=== PATIENT | male | born 1990 | race Caucasian/White ===

== ENCOUNTER 2018-03-27 20:59 | Emergency (ER) | payer SELFPAY ==
[~2018-03-27] VITALS: Ht 177.8 cm; Wt 95.3 kg
--- NOTE | 2018-03-27 21:48 | ED Headache ---
General Chief Complaint: Head/Cervical Problems Stated Complaint: FALL/HEAD INJ Nursing Triage Note: pt verbalized fall from standing, this morning hit back of head. denies loc. states pt is acting "spacy" states drifts off during converstations. pt A/ O x4. Nursing Sepsis Screen: No Definite Risk Source: patient Exam Limitations: no limitations (USAMA SEVILLA APRN) History of Present Illness Date Seen by Provider: Mar 27, 2018 Time Seen by Provider: 21:46 Initial Comments To ER with reports of head injury. He arrives by private vehicle from home accompanied by his . The head injury occurred today earlier this morning at about 8 AM. He was shoveling mud when he slipped and fell striking the back of his head on concrete. There was no loss of consciousness but he has since been disoriented at times for example turning off the car's headlight's while driving thinking that he was turning them on. She states that he also drifts off during conversation. no nausea no vomiting intermittent headache and mild dizziness. No anticoagulant use. Timing/Duration: other (12 hours) Severity/Quality: moderate Associated Symptoms: confusion, nausea/vomiting (USAMA SEVILLA APRN) Allergies and Home Medications Patient Home Medication List Home Medication List Reviewed: Yes (USAMA SEVILLA APRN) Review of Systems Review of Systems Constitutional: see HPI Eyes: No Symptoms Reported Ears, Nose, Mouth, Throat: no symptoms reported Respiratory: no symptoms reported Cardiovascular: no symptoms reported Genitourinary: no symptoms reported Musculoskeletal: no symptoms reported Skin: no symptoms reported Psychiatric/Neurological: See HPI, Headache; Denies Numbness (USAMA SEVILLA APRN) Past Dtwixby-Xnoipg-Jifznv Hx Patient Social History Recent Foreign Travel: No Contact w/Someone Who Travel: No Recent Infectious Disease Expo: No Physical Abuse: No Sexual Abuse: No Mistreated: No Fear: No (USAMA SEVILLA APRN) Physical Exam Vital Signs Vital Signs - First Documented 03/27/18 21:13 Temp 98.0 Pulse 77 Resp 18 B/P (MAP) 145/103 (117) Pulse Ox 95 O2 Delivery Room Air (CASANDRA CARDOSO MD) Vital Signs Capillary Refill : Less Than 3 Seconds (USAMA SEVILLA APRN) Height, Weight, BMI Height: 5'10.00" Weight: 210lbs. oz. 95.176199bq; BMI Method:Stated General Appearance: WD/WN, no apparent distress HEENT: PERRL/EOMI, normal ENT inspection, TMs normal, pharynx normal, other ( at this time he is alert and oriented with a GCS of 15. There is no scalp hematoma or laceration. There is no palpable depressed skull fracture. There is no soto sign or hemotympanum or raccoon eyes.) Neck: tender lateral Cardiovascular: regular rate, rhythm, no murmur Respiratory: normal breath sounds, no respiratory distress, no accessory muscle use Gastrointestinal: normal bowel sounds, non tender, soft Extremities: normal range of motion, non-tender, normal inspection Psychiatric: alert, oriented x 3 Crainal Nerves: normal hearing, normal speech, PERRL Skin: normal color, warm/dry (USAMA SEVILLA APRN) Progress/Results/Core Measures Results/Orders Vital Signs/I&O 03/27/18 21:13 Temp 98.0 Pulse 77 Resp 18 B/P (MAP) 145/103 (117) Pulse Ox 95 O2 Delivery Room Air (CASANDRA CARDOSO MD) Blood Pressure Mean: 117 Progress Progress Note : Progress Note 2229: CT results noted. I have reevaluated the patient. Still alert and oriented. Did discuss the reactive lymph nodes. He does admit to some upper respiratory complaints recently with runny nose. Instructed to rest over the next few days. Discharged home with return precautions. Patient verbalize understanding instructions and agreement with plan. (CASANDRA CARDOSO MD) Diagnostic Imaging Diagonstic Imaging: CT Plain Films/CT/US/NM/MRI: c-spine, head Comments NAME: LEONARDO SONG [facility] REC#: [id number] PT STATUS: REG ER : 1990 PHYSICIAN: USAMA SEVILLA APRN ADMIT DATE: 03/27/18/ER Draft Date of Exam:03/27/18 CT HEAD/CERVICAL SPINE WO PROCEDURE: CT head and CT cervical spine without contrast. TECHNIQUE: Multiple contiguous axial images were obtained through the brain and cervical spine without the use of intravenous contrast. Sagittal and coronal reformations through the cervical spine were then performed. INDICATION: 28-year-old male injured in fall hit head and neck presents with pain COMPARISON: None. CT HEAD FINDINGS: Midline structures are not displaced. Lateral, third and fourth ventricles are normal in size, shape and anatomic position. There is no evidence of mass, mass effect, hydrocephalus or hemorrhage. Travis-white differentiation is normal. There is no sulcal effacement. There are no abnormal extra-axial fluid collections or hemorrhage. Basilar cisterns appear normal. Sinuses show a mucus retention cyst in the right maxillary sinus. Orbits and mastoid air cells are normal. Bone windows show no calvarial changes. IMPRESSION: Unremarkable nonenhanced CT brain. CT CERVICAL SPINE FINDINGS: Axial images and sagittal and coronal reconstructions the cervical spine show no evidence of new or healing fractures, bony destruction or remodeling. Cervical vertebral bodies appear well aligned, vertebral body heights are well-maintained. Prevertebral soft tissue as well as a predental space and the relationship of the dens to the lateral mass of C1 is normal. Lung apices are clear. Superior mediastinum is grossly normal. The parapharyngeal and paraspinous soft tissues are also grossly normal. There are few cervical lymph nodes probably reactive in nature. IMPRESSION: 1. No evidence of acute fracture or subluxation seen. 2. Probable cervical reactive lymphadenopathy. Dictated on workstation # [id number] Dict: 03/27/184 Trans: 03/27/182221 [facility] [id number] Interpreted by: SULY RG MD Electronically signed by: (CASANDRA CARDOSO MD) Departure Impression Primary Impression: Concussion without loss of consciousness Qualified Codes: S06.0X0A - Concussion without loss of consciousness, initial encounter Additional Impression: Upper respiratory infection Qualified Codes: J06.9 - Acute upper respiratory infection, unspecified Disposition: HOME, SELF-CARE Condition: Improved Departure-Patient Inst. Decision time for Depature: 22:34 (CASANDRA CARDOSO MD) Referrals: NO,LOCAL PHYSICIAN (PCP/Family) Primary Care Physician Patient Instructions: Concussion, Adult (DC), Viral Upper Respiratory Infection , Adult (DC) Add. Discharge Instructions: All discharge instructions reviewed with patient and/or family. Voiced understanding. You need to rest for the next few days. You may take Tylenol/acetaminophen 1000 mg every 8 hours as needed for pain. You may also take ibuprofen 800 mg every 8 hours as needed for fever or pain. Follow-up with your Dr. in a few days for recheck. Return for worse pain, fever, vomiting, weakness, vision or balance problems or other concerns as needed. Work/School Note: Work Release Form Date Seen in the Emergency Department: Mar 27, 2018 Return to Work: Mar 30, 2018 Restrictions: No Restrictions USAMA SEVILLA APRN Mar 27, 2018 21:48 CASANDRA CARDOSO MD Mar 27, 2018 22:24
--- NOTE | 2018-03-27 22:22 | Diagnostic Imaging Report ---
PROCEDURE: CT head and CT cervical spine without contrast. TECHNIQUE: Multiple contiguous axial images were obtained through the brain and cervical spine without the use of intravenous contrast. Sagittal and coronal reformations through the cervical spine were then performed. INDICATION: 28-year-old male injured in fall hit head and neck presents with pain COMPARISON: None. CT HEAD FINDINGS: Midline structures are not displaced. Lateral, third and fourth ventricles are normal in size, shape and anatomic position. There is no evidence of mass, mass effect, hydrocephalus or hemorrhage. Travis-white differentiation is normal. There is no sulcal effacement. There are no abnormal extra-axial fluid collections or hemorrhage. Basilar cisterns appear normal. Sinuses show a mucus retention cyst in the right maxillary sinus. Orbits and mastoid air cells are normal. Bone windows show no calvarial changes. IMPRESSION: Unremarkable nonenhanced CT brain. CT CERVICAL SPINE FINDINGS: Axial images and sagittal and coronal reconstructions the cervical spine show no evidence of new or healing fractures, bony destruction or remodeling. Cervical vertebral bodies appear well aligned, vertebral body heights are well-maintained. Prevertebral soft tissue as well as a predental space and the relationship of the dens to the lateral mass of C1 is normal. Lung apices are clear. Superior mediastinum is grossly normal. The parapharyngeal and paraspinous soft tissues are also grossly normal. There are few cervical lymph nodes probably reactive in nature. IMPRESSION: 1. No evidence of acute fracture or subluxation seen. 2. Probable cervical reactive lymphadenopathy. Dictated by: Dictated on workstation # [id number]
[2018-03-27 22:44] VITALS: BP 145/103
== END 2018-03-27 22:44 | disposition home or self-care (01) ==
LOC: ER 21:01
DX: S06.0X0A Concussion without loss of consciousness, initial encounter (principal); J06.9 Acute upper respiratory infection, unspecified; R40.2412 Glasgow coma scale score 13-15, at arrival to emergency department; W01.198A Fall on same level from slipping, tripping and stumbling with subsequent striking against other object, initial encounter; Y93.H1 Activity, digging, shoveling and raking
CPT/HCPCS: 70450; 72125